=== PATIENT | female | born 1990 | race Caucasian/White ===

== ENCOUNTER → 2018-06-16 15:39 | Outpatient (CLI) | payer MEDICAID, SELFPAY ==
[2018-06-16 16:10] LABS: Basophils % 0.2 % (0.1-2.0); Eosinophils % 0.3 % (0.1-12.0); Hemoglobin 12.6 g/dL (12.2-16.2); Lymphocytes # 1.8 K/mm3 (0.7-4.5); Lymphocytes % 20.9 % (10-50); Mean Corpuscular HGB Conc 35.1 g/dL (31.8-35.4); Mean Corpuscular Hemoglobin 31.2 pg (27.0-31.2); Mean Corpuscular Volume 88.9 fl (81-99); Mean Platelet Volume 8.6 fl (7.4-10.4); Monocytes # 0.5 K/mm3 (0.1-1.0); Monocytes % 5.7 % (1.7-9.3); Neutrophils # 6.3 K/mm3 (1.8-7.8); Platelet Count 190 K/mm3 (142-424); Red Blood Count 4.05 M/mm3 (4.20-5.40); Red Cell Distribution Width 13.1 % (11.5-17.5); White Blood Count 8.6 K/mm3 (4.8-10.8)
[2018-06-16 18:55] LABS: Amphetamine/Metha Screen,Urine Negative ng/mL (<1000); Barbiturates Screen,Urine Negative ng/mL (<200); Benzodiazepines Screen,Urine Negative ng/mL (<200); Cannabinoid Screen,Urine Negative ng/mL (<50); Cocaine Screen,Urine Negative ng/mL (<300); Methadone Screen,Urine Negative ng/mL (<300); Opiate Screen,Urine Negative ng/mL (<300); Phencyclidine Screen,Urine Negative ng/mL (<25)
[2018-06-18 07:39] LABS: HIV Screen 4th Generation wRfx Non Reactive (Non Reactive)
[2018-06-18 09:09] LABS: Rapid Plasma Reagin Ab Titer Non Reactive (NonRea<1:1)
[2018-06-18 09:10] LABS: Hepatitis B Surface Antigen Negative (Negative); Hepatitis C Antibody >11.0 s/co ratio (0.0-0.9)
== END ==
PROVIDERS: Visit Provider Obstetrics & Gynecology
DX: Z34.90 Encounter for supervision of normal pregnancy, unspecified, unspecified trimester (principal)
CPT/HCPCS: 36415; 80305; 84443; 85025; 86592; 86703; 86762; 86850; 87340; 87380; G0432

== ENCOUNTER 2018-07-12 02:53 | Outpatient (CLI) | payer MEDICAID, SELFPAY ==
[2018-07-12 03:03] VITALS: BMI 22.6
[2018-07-12 03:11] LABS: Appearance,Urine CLEAR (Clear); Bilirubin,Urine Negative (Negative); Blood, Urine Negative (Negative); Color,Urine YELLOW (Yellow); Glucose,Urine (UA) Negative (Negative); Ketones,Urine Negative (Negative); Leukocyte Esterase,Urine Negative (Negative); Microscopic, Urine URINE MICROSCOPIC (MICROSCOPIC); Nitrate,Urine Negative (Negative); PH,Urine 7.5 (5.0-8.5); Protein,Urine Negative (Negative); Specific Gravity, Urine 1.015 (1.005-1.030); Urobilinogen,Urine 0.2 EU/dl (0.2)
[2018-07-12 03:14] LABS: Amorphous Sediment,Urine Trace /lpf
[2018-07-12 03:18] LABS: Amphetamine/Metha Screen,Urine Negative ng/mL (<1000); Barbiturates Screen,Urine Negative ng/mL (<200); Benzodiazepines Screen,Urine Negative ng/mL (<200); Cannabinoid Screen,Urine Negative ng/mL (<50); Cocaine Screen,Urine Negative ng/mL (<300); Methadone Screen,Urine Negative ng/mL (<300); Opiate Screen,Urine Negative ng/mL (<300); Phencyclidine Screen,Urine Negative ng/mL (<25)
[2018-07-12 03:24] VITALS: BP 106/70; PULSE 90; RESP 18; TEMP 36.9; BMI 22.6
[2018-07-12 03:30] VITALS: BP 106/70; PULSE 90; RESP 18; TEMP 36.9
[2018-07-12 03:53] LABS: Fetal Fibronectin (Rapid) Negative (Negative)
== END 2018-07-12 04:55 | disposition home or self-care (01) ==
LOC: OBOUT 02:55 → OB 02:56
PROVIDERS: PCP Family Medicine; Visit Provider Obstetrics & Gynecology
DX: O26.892 Other specified pregnancy related conditions, second trimester (principal); Z3A.25 25 weeks gestation of pregnancy; R10.84 Generalized abdominal pain; M54.5 Low back pain
CPT/HCPCS: 59025; 80305; 81001; 82731; 96372

== ENCOUNTER → 2018-08-03 10:23 | Outpatient (CLI) | payer MEDICAID, SELFPAY ==
[2018-08-03 14:04] LABS: Glucose 1 Hour 200 mg/dL (74-106)
== END ==
PROVIDERS: Visit Provider Obstetrics & Gynecology
DX: Z34.90 Encounter for supervision of normal pregnancy, unspecified, unspecified trimester (principal)
CPT/HCPCS: 36415; 82951

== ENCOUNTER → 2018-08-14 10:45 | Outpatient (CLI) | payer MEDICAID, SELFPAY ==
[2018-08-14 11:22] LABS: Glucose,Fasting 83 mg/dL (60-105)
[2018-08-14 14:22] LABS: Glucose 1 Hour 215 mg/dL (74-106); Glucose 2 Hour 224 mg/dL (74-106)
[2018-08-14 14:48] LABS: Glucose 3 Hour 161 mg/dL (74-106)
== END ==
PROVIDERS: Visit Provider Obstetrics & Gynecology
DX: O99.810 Abnormal glucose complicating pregnancy (principal); Z34.90 Encounter for supervision of normal pregnancy, unspecified, unspecified trimester
CPT/HCPCS: 36415; 82951

== ENCOUNTER → 2018-09-14 14:10 | Outpatient (CLI) | payer MEDICAID, SELFPAY | PROVIDERS: Visit Provider Obstetrics & Gynecology | DX: Z34.90 Encounter for supervision of normal pregnancy, unspecified, unspecified trimester (principal) | CPT/HCPCS: 86403 ==

== ENCOUNTER 2018-09-28 13:50 | Outpatient (CLI) | payer MEDICAID, SELFPAY ==
[2018-09-28 14:08] VITALS: BP 111/77; PULSE 81; RESP 18; TEMP 36.4; O2SAT 100; BMI 24.7
== END 2018-09-28 16:18 | disposition home or self-care (01) ==
LOC: OBOUT 13:55 → OB 13:56
PROVIDERS: PCP Family Medicine; Visit Provider Obstetrics & Gynecology
DX: O26.893 Other specified pregnancy related conditions, third trimester (principal); Z3A.36 36 weeks gestation of pregnancy
CPT/HCPCS: 59025; 96360; 96372

== ENCOUNTER 2018-10-04 17:54 | Inpatient (IN) ==
[2018-10-04 18:26] LABS: Microscopic, Urine URINE MICROSCOPIC (MICROSCOPIC)
[2018-10-04 18:28] LABS: Appearance,Urine CLEAR (Clear); Bilirubin,Urine Negative (Negative); Blood, Urine TRACE-I (Negative); Color,Urine YELLOW (Yellow); Glucose,Urine (UA) Negative (Negative); Ketones,Urine Negative (Negative); Leukocyte Esterase,Urine Negative (Negative); PH,Urine 6.5 (5.0-8.5); Protein,Urine Negative (Negative); Specific Gravity, Urine <= 1.005 (1.005-1.030); Urobilinogen,Urine 0.2 EU/dl (0.2)
[2018-10-04 18:33] LABS: RBC,Urine Occasional #/hpf (0-3); Squamous Epithelial Cell,Urine Occasional #/hpf (0-5); WBC,Urine Occasional #/hpf (0-3)
[2018-10-04 18:36] LABS: Amphetamine/Metha Screen,Urine Negative ng/mL (<1000); Barbiturates Screen,Urine Negative ng/mL (<200); Benzodiazepines Screen,Urine Negative ng/mL (<200); Cannabinoid Screen,Urine Negative ng/mL (<50); Cocaine Screen,Urine Negative ng/mL (<300); Methadone Screen,Urine Negative ng/mL (<300); Opiate Screen,Urine Negative ng/mL (<300); Phencyclidine Screen,Urine Negative ng/mL (<25)
[2018-10-04 20:21] LABS: Basophils % 0.3 % (0.1-2.0); Eosinophils % 0.2 % (0.1-12.0); Lymphocytes # 1.8 K/mm3 (0.7-4.5); Mean Corpuscular HGB Conc 33.5 g/dL (31.8-35.4); Mean Corpuscular Volume 87.6 fl (81-99); Mean Platelet Volume 10.4 fl (7.4-10.4); Monocytes # 0.6 K/mm3 (0.1-1.0); Monocytes % 6.7 % (1.7-9.3); Neutrophils # 6.9 K/mm3 (1.8-7.8); Neutrophils % 73.9 % (37.0-80.0); Platelet Count 155 K/mm3 (142-424); Red Blood Count 3.77 M/mm3 (4.20-5.40); Red Cell Distribution Width 12.8 % (11.5-17.5); White Blood Count 9.3 K/mm3 (4.8-10.8)
--- NOTE | 2018-10-05 06:32 | Progress Note ---
Internal Medicine - PN: Subj *Date: 10/05/18 *Time: 06:31 Interval history: This 28-year-old 5, para 4, Ab0 white female was admitted at 37-4/7 weeks in labor with her cervix 1 to 2 cm dilated. The baby is look good on the monitor (external), and this morning her cervix is 80%, 3 cm, with the presenting vertex at -2 station. Bag of water intact. She is planning for tubal ligation. The plan is for vaginal delivery. Exam Vital signs and Labs for Last 24 Hours: Temp Resp Pulse Ox 98.0 F 20 100 10/04/18 18:01 10/04/18 18:01 10/04/18 18:01 Laboratory Results - last 24 hr 10/04/18 18:15: Urine Color Yellow, Urine Appearance Clear, Urine pH 6.5, Ur Specific [place] <= 1.005, Urine Protein Negative, Urine Glucose (UA) Negative, Urine Ketones Negative, Urine Blood Trace-i, Urine Nitrate Negative, Urine Bilirubin Negative, Urine Urobilinogen 0.2, Ur Leukocyte Esterase Negative, Urine RBC Occasional, Urine WBC Occasional, Ur Squamous Epith Cells Occasional 10/04/18 18:15: Urine Opiates Screen Negative, Urine Methadone Screen Negative, Ur Barbituates Screen Negative, Ur Phencyclidine Scrn Negative, Ur Amphetamines Screen Negative, U Benzodiazepines Scrn Negative, Urine Cocaine Screen Negative, U Marijuana (THC) Screen Negative 10/04/18 18:15: Membrane Rupture Negative 10/04/18 20:13: WBC 9.3, RBC 3.77 L, Hgb 11.0 L, Hct 33.0 L, MCV 87.6, MCH 29.3, MCHC 33.5, RDW 12.8, Plt Count 155, MPV 10.4, Neut % (Auto) 73.9, Lymph % (Auto) 19.0, [place] % (Auto) 6.7, Eos % (Auto) 0.2, Baso % (Auto) 0.3, Neut # (Auto) 6.9, Lymph # (Auto) 1.8, [place] # (Auto) 0.6, Eos # (Auto) 0.0, Baso # (Auto) 0.0 10/04/18 20:13: Blood Type A Positive, Antibody Screen Negative I & O for Last 24 hours: Intake & Output 10/02/18 10/03/18 10/04/18 10/05/18 11:59 11:59 11:59 11:59 Weight 134 lb
--- NOTE | 2018-10-05 11:09 | Progress Note ---
Internal Medicine - PN: Subj *Date: 10/05/18 *Time: 11:08 Interval history: Cervix is now 90%, 3 to 4 cm dilated, with the presenting vertex at -2 station. Amniotomy reveals clear fluid and an internal monitor has been placed. Intravenous Pitocin is now being used for augmentation. Vaginal delivery anticipated. Patient is planning a tubal ligation. Exam Vital signs and Labs for Last 24 Hours: Temp Pulse Resp BP Pulse Ox 98.0 F 73 20 118/77 98 10/05/18 08:00 10/05/18 08:00 10/05/18 08:00 10/05/18 08:00 10/05/18 08:00 Laboratory Results - last 24 hr 10/04/18 18:15: Urine Color Yellow, Urine Appearance Clear, Urine pH 6.5, Ur Specific [place] <= 1.005, Urine Protein Negative, Urine Glucose (UA) Negative, Urine Ketones Negative, Urine Blood Trace-i, Urine Nitrate Negative, Urine Bilirubin Negative, Urine Urobilinogen 0.2, Ur Leukocyte Esterase Negative, Urine RBC Occasional, Urine WBC Occasional, Ur Squamous Epith Cells Occasional 10/04/18 18:15: Urine Opiates Screen Negative, Urine Methadone Screen Negative, Ur Barbituates Screen Negative, Ur Phencyclidine Scrn Negative, Ur Amphetamines Screen Negative, U Benzodiazepines Scrn Negative, Urine Cocaine Screen Negative, U Marijuana (THC) Screen Negative 10/04/18 18:15: Membrane Rupture Negative 10/04/18 20:13: WBC 9.3, RBC 3.77 L, Hgb 11.0 L, Hct 33.0 L, MCV 87.6, MCH 29.3, MCHC 33.5, RDW 12.8, Plt Count 155, MPV 10.4, Neut % (Auto) 73.9, Lymph % (Auto) 19.0, [place] % (Auto) 6.7, Eos % (Auto) 0.2, Baso % (Auto) 0.3, Neut # (Auto) 6.9, Lymph # (Auto) 1.8, [place] # (Auto) 0.6, Eos # (Auto) 0.0, Baso # (Auto) 0.0 10/04/18 20:13: Blood Type A Positive, Antibody Screen Negative I & O for Last 24 hours: Intake & Output 10/02/18 10/03/18 10/04/18 10/05/18 11:59 11:59 11:59 11:59 Weight 134 lb
--- NOTE | 2018-10-05 12:55 | Progress Note ---
Internal Medicine - PN: Subj *Date: 10/05/18 *Time: 12:53 Interval history: Doing well. Cervix now completely effaced, 6 cm, with the presenting vertex at -2 station. Refuses epidural at this time. Exam Vital signs and Labs for Last 24 Hours: Temp Pulse Resp BP Pulse Ox 98.5 F 89 20 121/86 98 10/05/18 12:00 10/05/18 12:00 10/05/18 12:00 10/05/18 12:00 10/05/18 12:00 Laboratory Results - last 24 hr 10/04/18 18:15: Urine Color Yellow, Urine Appearance Clear, Urine pH 6.5, Ur Specific [place] <= 1.005, Urine Protein Negative, Urine Glucose (UA) Negative, Urine Ketones Negative, Urine Blood Trace-i, Urine Nitrate Negative, Urine Bilirubin Negative, Urine Urobilinogen 0.2, Ur Leukocyte Esterase Negative, Urine RBC Occasional, Urine WBC Occasional, Ur Squamous Epith Cells Occasional 10/04/18 18:15: Urine Opiates Screen Negative, Urine Methadone Screen Negative, Ur Barbituates Screen Negative, Ur Phencyclidine Scrn Negative, Ur Amphetamines Screen Negative, U Benzodiazepines Scrn Negative, Urine Cocaine Screen Negative, U Marijuana (THC) Screen Negative 10/04/18 18:15: Membrane Rupture Negative 10/04/18 20:13: WBC 9.3, RBC 3.77 L, Hgb 11.0 L, Hct 33.0 L, MCV 87.6, MCH 29.3, MCHC 33.5, RDW 12.8, Plt Count 155, MPV 10.4, Neut % (Auto) 73.9, Lymph % (Auto) 19.0, [place] % (Auto) 6.7, Eos % (Auto) 0.2, Baso % (Auto) 0.3, Neut # (Auto) 6.9, Lymph # (Auto) 1.8, [place] # (Auto) 0.6, Eos # (Auto) 0.0, Baso # (Auto) 0.0 10/04/18 20:13: Blood Type A Positive, Antibody Screen Negative I & O for Last 24 hours: Intake & Output 10/03/18 10/04/18 10/05/18 10/06/18 11:59 11:59 11:59 11:59 Weight 134 lb
--- NOTE | 2018-10-05 14:20 | Progress Note ---
Internal Medicine - PN: Subj *Date: 10/05/18 *Time: 14:19 Interval history: Cervix now completely effaced, anterior lip, 0 station. Exam Vital signs and Labs for Last 24 Hours: Temp Pulse Resp BP Pulse Ox 98.5 F 89 20 121/86 98 10/05/18 12:00 10/05/18 12:00 10/05/18 12:00 10/05/18 12:00 10/05/18 12:00 Laboratory Results - last 24 hr 10/04/18 18:15: Urine Color Yellow, Urine Appearance Clear, Urine pH 6.5, Ur Specific [place] <= 1.005, Urine Protein Negative, Urine Glucose (UA) Negative, Urine Ketones Negative, Urine Blood Trace-i, Urine Nitrate Negative, Urine Bilirubin Negative, Urine Urobilinogen 0.2, Ur Leukocyte Esterase Negative, Urine RBC Occasional, Urine WBC Occasional, Ur Squamous Epith Cells Occasional 10/04/18 18:15: Urine Opiates Screen Negative, Urine Methadone Screen Negative, Ur Barbituates Screen Negative, Ur Phencyclidine Scrn Negative, Ur Amphetamines Screen Negative, U Benzodiazepines Scrn Negative, Urine Cocaine Screen Negative, U Marijuana (THC) Screen Negative 10/04/18 18:15: Membrane Rupture Negative 10/04/18 20:13: WBC 9.3, RBC 3.77 L, Hgb 11.0 L, Hct 33.0 L, MCV 87.6, MCH 29.3, MCHC 33.5, RDW 12.8, Plt Count 155, MPV 10.4, Neut % (Auto) 73.9, Lymph % (Auto) 19.0, [place] % (Auto) 6.7, Eos % (Auto) 0.2, Baso % (Auto) 0.3, Neut # (Auto) 6.9, Lymph # (Auto) 1.8, [place] # (Auto) 0.6, Eos # (Auto) 0.0, Baso # (Auto) 0.0 10/04/18 20:13: Blood Type A Positive, Antibody Screen Negative I & O for Last 24 hours: Intake & Output 10/03/18 10/04/18 10/05/18 10/06/18 11:59 11:59 11:59 11:59 Weight 134 lb
--- NOTE | 2018-10-05 14:54 | Procedure Note ---
- Delivery Note Delivery Date:: 10/05/18 Delivery Time:: 14:37 Anesthesia Type: None Was labor medically induced?: Yes Induction method: per pitocin protocol Gestational age (weeks): 37 delivered prior to 39 weeks?: Yes Justification for early elective delivery:: Active Labor Gender: Male at 1 minute: 7 at 5 minutes: 8 Suction Catheter Type: Lluvia AF:: clear Delivery Procedure:: This 28-year-old 5, now para 5, Ab0 white female was admitted at 37-4/7 weeks in active labor at approximately 2000 hrs. on 10/04/2018. She was observed overnight and augmented this morning because of slow dilatation. On admission she was 1 cm, this morning she was 3 cm dilated. She then went steadily to completion, without an epidural, and delivered spontaneously, with no episiotomy, at 1437. There was no meconium, nor was there a nuchal cord. The baby's nasal and oropharynx were bulb suction, and the baby cried spontaneously on the perineum, as was delivered. The cord was clamped and cut, 3 vessels were noted to be within the cord, and cord blood was obtained. The cord pH is pending. The baby was handed into the arms of the attending RN, who assigned Apgars of 7 at 1 minute and 8 at 5 minutes to this male infant (weight in length pending), born at 1437. The placenta delivered spontaneously, intact, at 1439, making the total time in labor 18 hours 39 minutes. The uterus was inspected and was felt to be clean, and was involuting well, with IV Pitocin running. There were no lacerations. The rectovaginal septum was intact at the close of the procedure. The sponge needle count was correct. The estimated blood loss was 350 cc. The patient tolerated the procedure well, and was recovered in excellent condition. Her blood type is A+. Her rubella titer is immune. She plans to bottlefeed. It should be noted that she is group B strep positive, and received antibiotics during her labor. She is also hepatitis C positive and appropriate precautions have been taken. She plans for a tubal ligation either later today or tomorrow morning. Placental Delivery Description: Spontaneous
--- NOTE | 2018-10-06 06:16 | Progress Note ---
Internal Medicine - PN: Subj *Date: 10/06/18 *Time: 06:15 Interval history: This is day #1. The patient is afebrile. Vital signs stable. Abdomen soft. Lochia normal. Uterine fundus involuting well. Hemoglobin 11.0 g. Patient is scheduled for tubal ligation this morning. The baby is doing well. Exam Vital signs and Labs for Last 24 Hours: Temp Pulse Resp BP Pulse Ox 98.0 F 72 18 116/55 L 100 10/05/18 16:00 10/05/18 16:00 10/05/18 16:00 10/05/18 16:00 10/05/18 16:00 Laboratory Results - last 24 hr 10/05/18 15:01: Cord ABG pH 7.25 L I & O for Last 24 hours: Intake & Output 10/03/18 10/04/18 10/05/18 10/06/18 11:59 11:59 11:59 11:59 Weight 134 lb
--- NOTE | 2018-10-06 07:00 | Operative Note ---
Date of procedure: 10/06/18 (Normal spontaneous vaginal delivery on 10/05/2018) Pre-op Diagnosis:: Desire for sterilization Post-op Diagnosis:: Desire for sterilization Procedure performed:: bilateral tubal ligation Surgeon:: Carlos Hutton MD DOPSTER:: Iraj Bush Anesthesia: GETA Estimated blood loss (mL): 10 Operative findings:: Normal fallopian tubes Operative note:: After the patient was prepped and draped in usual fashion and general anesthesia was administered, a subumbilical semielliptical incision was made with a knife, and taken down to the peritoneum, which was entered with Metzenbaum scissors and extended bilaterally. The involuting uterus was encountered. Using a finger sweep, first the left tube, and then the right was brought up into view and followed out to its fimbriated end for identification. The midportion of each tube was tented up with a [place] clamp, and the base of the tented up portion of the tube was crushed with a Mary clamp, and ligated with 2-0 Vicryl. The intervening segment of each tube was excised with Metzenbaum scissors, and the stumps coagulated with the Bovie. There was minimal bleeding. The tubes were allowed to drop back into place. The peritoneum was closed with a running unlocked suture of 2-0 Vicryl. The subcutaneous fat and fascia were closed with a running unlocked suture of 2-0 Vicryl. The skin was closed with a subcuticular suture of 3-0 Vicryl, and appropriately dressed. The sponge and needle counts correct. The estimated blood loss was less than 10 cc. The patient tolerated the procedure well, and was taken to PACU in excellent condition, whence she will return to the floor. Condition: stable Disposition: PACU Specimens:: Bilateral tubal segments Complications:: None
--- NOTE | 2018-10-06 07:06 | Progress Note ---
[facility] Anesthesia Record Part I Intake, IV Amount: 200 Estimated blood loss (mL): 5 Urine output (mL): 0 Blood Pressure: 132/81 SaO2: 95 Pulse Rate: 70 Respiratory Rate: 16 Temperature: 97.5 F Patient is:: Drowsy, Stable Stable to PACU at:: 07:00
--- NOTE | 2018-10-06 07:06 | Progress Note ---
[facility] Anesthesia Checklist - Patient Identification Patient Identification: Arm Band - Structural Data Admitted From: Inpatient Planned Operative Procedure/s: post bilateral tubal ligation Consent for Planned Operative Procedure(s) Verified: Yes Verified Documents: Surgical Consent, History and Physical - NPO Status Verified Time NPO: 00:00 - Additional verifications Anesthesia Reactions: No - Airway Assessment C-Spine Mobility Assessed: Yes (mp2) TMJ Mobility Assessed: Yes Dentition: Good Dentition - Neurological Assessment Level of Consciousness: Awake, Alert - Anesthesia Plan Anesthesia Risk discussed: Yes Anesthesia Plan: Verified ASA Class: II Anesthesia Type: General (pt refuses sab- increased risks of GA in post pt discussed- pt verbalizes understanding) [facility] History Medical History: Reports:: Hepatitis (c) Denies:: Cancer, Diabetes Mellitus Type 1, Diabetes Mellitus Type 2, MRSA *Have you ever received a pneumonia vaccine?: No *Have you received a flu vaccine this season?: No Other Medical History: Denies: Hormone Therapy Other Surgeries: Yes: Cholecystectomy. No: Amputation: No Fractures: No - *Social History Smoking Status: Former smoker Tobacco Type: cigarettes Alcohol Intake: former Alcohol Intake Frequency:: other Substance Use Type: former substance user, heroin *Occupational Status:: unemployed *Travel in the last 8 weeks: None Family Hx:: Coronary Artery Disease Para: 1
--- NOTE | 2018-10-06 07:07 | Progress Note ---
[facility] Anesthesia Record Part II Discharge Time: 07:30 Destination: Obstetric PACU nurse assessment reviewed?: Yes Patient Condition:: Good Anesthesia Complications:: None Swallowing reflex intact?: Yes Cyanosis?: No
[2018-10-06 07:33] LABS: Hematocrit 33.9 % (37.0-47.0)
[2018-10-06 10:35] LABS: Hematocrit 28.8 % (37.0-47.0)
[2018-10-06 10:36] LABS: Hemoglobin 9.2 g/dL (12.2-16.2)
--- NOTE | 2018-10-06 11:31 | Progress Note ---
Internal Medicine - PN: Subj *Date: 10/06/18 *Time: 11:25 Interval history: I was called urgently to see the patient at 1000. She had undergone a normal spontaneous vaginal delivery yesterday afternoon and a tubal ligation early this morning without apparent complications. When she had return to the floor she was doing well and got up to void without any difficulty. Shortly thereafter she needed to get up again to void and became diaphoretic and almost unresponsive. She was helped back to bed and I was called to attend to her. At that point her blood pressure was 69/35. Her pulse rate was 113. She was barely responsive and pale. Her lochia was normal. Her abdomen appeared soft. The subumbilical wound was clean. She was not complaining of abdominal pain. Her calves were nontender. An H&H had been drawn, and anesthesia was called. Iraj Bush CRNA, arrived expeditiously; he had been the pharmacy affairs assistant at her tubal ligation earlier this morning. The patient's pulse ox was steady at 100. A stat EKG was unremarkable. A tox screen was obtained (her partner insists that she had taken nothing that was not prescribed in the hospital) and the hemoglobin was returned at 9.2 g (yesterday was 11.0 g both pre-and post delivery). A stat ultrasound revealed a large amount of fluid in the abdomen. Her blood pressure was relatively stable in the 70s over 40s. Narcan was administered empirically. It was felt that exploratory laparotomy was necessary because of hemoperitoneum from postop hemorrhage. The patient and her partner were quickly consented, and the patient was typed and crossed and taken expeditiously to the operating room. Please refer to the op note which follows. Exam Vital signs and Labs for Last 24 Hours: Temp Pulse Resp BP Pulse Ox 97.8 F 67 18 122/84 98 10/06/18 07:54 10/06/18 07:54 10/06/18 07:54 10/06/18 07:54 10/06/18 07:54 Laboratory Results - last 24 hr 10/04/18 20:13: Crossmatch (AHG) See Detail 10/05/18 15:01: Cord ABG pH 7.25 L 10/06/18 06:10: Hgb 11.0 L, Hct 33.9 L 10/06/18 10:22: Hgb 9.2 L D, Hct 28.8 L I & O for Last 24 hours: Intake & Output 10/03/18 10/04/18 10/05/18 10/06/18 11:59 11:59 11:59 11:59 Intake Total 300 / 300 Output Total 0 / 0 Balance 300 / 300 Weight 134 lb
--- NOTE | 2018-10-06 11:38 | Operative Note ---
Date of procedure: 10/06/18 (Postop hemorrhage) Pre-op Diagnosis:: 1. Postop hemorrhage, with acute blood loss. Post-op Diagnosis:: 1. Postop hemorrhage, with acute blood loss. 2. Massive hemoperitoneum. 3. Bleeding from the right fallopian tube. Procedure performed:: 1. Exploratory laparotomy. 2. Evacuation of massive hemoperitoneum. 3. Right salpingectomy. Surgeon:: Carlos Hutton MD Truck Sales Manager(s):: GAEL Deshpaned HAIR BLENDER:: Iraj Bush Anesthesia: REYNALDO Estimated blood loss (mL): 1,000 Operative findings:: 1. Massive hemoperitoneum. 2. Small bleeding point from the right fallopian tube. Operative note:: After the patient was prepped and draped in usual fashion and general anesthesia was administered, a lower abdominal midline incision was made and quickly taken down through fat and fascia to the peritoneum, which was entered with Metzenbaum scissors and extended above and below. A large amount of blood and clot was found within the abdominal cavity. These were evacuated and the gutters were extensively suctioned. The pelvis was addressed. The involuting uterus was normal, with no evidence of puncture or bleeding. Each ovary appeared normal. The left tube showed evidence of recent ligation and there was no evidence of bleeding from that tube. The stumps were again fulgurated as a precaution. On the right side, the same appeared to be so, except that there was a small amount of oozing from the ligation site and the mesosalpinx was thin, although no actual bleeding was seen from that site. The right tube was grasped with a [place] clamp, and a Mary clamp was used to cross-clamp the mesial salpinx and the uterine cornu. The right tube was excised with Metzenbaum scissors, including the ligation site. The pedicles were free tied and then oversewn with 3-0 Vicryl, and then the mesoappendix was also secondarily closed with an unlocked suture of 3-0 Vicryl. Extensive irrigation was carried out and there was no evidence of other bleeding. The appendix was identified and appeared normal. The peritoneum was then grasped with 3 Mary clamps, and closed with a running semi-lock suture of 0 Vicryl. The muscle was approximated with a running unlocked suture of 0 Vicryl. The fascia was closed with a running unlocked suture of 0 Vicryl. The subcutaneous fat and Sarah's fascia were closed with a running unlocked suture of 2-0 Vicryl. The skin was closed with a subcuticular suture of 3-0 Vicryl, and appropriately dressed. The sponge needle count was correct. Because of the urgency of the surgery, a preop count had not been done, and so a postop x-ray was done to assure that the counts were correct, and this showed no evidence of foreign bodies. The estimated blood loss was 1000 cc. The patient tolerated the procedure well, and was taken to PACU in stable condition. An H&H will be obtained there, and the patient will receive at least 1 unit of packed cells. Condition: stable Disposition: PACU Specimens:: Right fallopian tube Complications:: None
--- NOTE | 2018-10-06 11:46 | Progress Note ---
[facility] Anesthesia Record Part I Intake, IV Amount: 1,000 Estimated blood loss (mL): 1,000 Urine output (mL): 0 Blood Pressure: 143/73 SaO2: 99 Pulse Rate: 90 Respiratory Rate: 16 Temperature: 97.3 F Patient is:: Drowsy, Stable Stable to PACU at:: 11:40
--- NOTE | 2018-10-06 11:46 | Progress Note ---
[facility] Anesthesia Record Part II Discharge Time: 12:10 Destination: Obstetric PACU nurse assessment reviewed?: Yes Patient Condition:: Good Anesthesia Complications:: None Swallowing reflex intact?: Yes Cyanosis?: No
[2018-10-06 12:03] LABS: Hematocrit 27.9 % (37.0-47.0)
[2018-10-06 13:05] LABS: Microscopic, Urine URINE MICROSCOPIC (MICROSCOPIC)
[2018-10-06 13:07] LABS: Appearance,Urine CLEAR (Clear); Bilirubin,Urine Negative (Negative); Blood, Urine TRACE-I (Negative); Color,Urine YELLOW (Yellow); Glucose,Urine (UA) Negative (Negative); Ketones,Urine Negative (Negative); Leukocyte Esterase,Urine Negative (Negative); PH,Urine 6.5 (5.0-8.5); Protein,Urine Negative (Negative); Urobilinogen,Urine 0.2 EU/dl (0.2)
[2018-10-06 13:14] LABS: Amphetamine/Metha Screen,Urine Negative ng/mL (<1000); Barbiturates Screen,Urine Negative ng/mL (<200); Benzodiazepines Screen,Urine Positive ng/mL (<200); Cannabinoid Screen,Urine Negative ng/mL (<50); Cocaine Screen,Urine Negative ng/mL (<300); Methadone Screen,Urine Negative ng/mL (<300); Opiate Screen,Urine Negative ng/mL (<300); Phencyclidine Screen,Urine Negative ng/mL (<25)
[2018-10-06 14:14] LABS: Bacteria,Urine Trace /lpf
--- NOTE | 2018-10-06 15:24 | Pharmacy Consult Notes ---
[facility] Pharmacy VTE Monitoring - Patient Demographics Admission date: 10/05/18 Report Date: 10/06/18 Time: 15:23 Allergies/Adverse Reactions: Patient Allergies Penicillins Allergy (Mild, Verified 10/01/18 14:37) Height: 1.52 m Weight: 60.781 kg - VTE Risk Labs: VTE Related Lab Results Hgb 9.0 g/dL (12.2-16.2) L 10/06/18 11:55 Hct 27.9 % (37.0-47.0) L 10/06/18 11:55 Plt Count 155 K/mm3 (142-424) 10/04/18 20:13 - Prophylaxis VTE Prophylaxis Ordered?: Yes Types of VTE Prophylaxis: IPCS Thigh High Location of Applied Device: Bilateral Lower Extremeties
--- NOTE | 2018-10-06 15:45 | Electrocardiograph Report ---
APPROVED REPORT Exam: Resting ECG HR:65 bpm ECG Measurements Heart Rate 65 AXES VA 100 P 56 QRSd 74 QRS 71 QT 426 T38 QTc 443 <Conclusion> Sinus rhythm with short VA Otherwise normal ECG Electronically signed by : Jani Johnson, 10/06/2018 15:38:18
[2018-10-06 16:24] LABS: Hematocrit 26.8 % (37.0-47.0); Hemoglobin 8.7 g/dL (12.2-16.2)
--- NOTE | 2018-10-06 16:32 | Progress Note ---
Internal Medicine - PN: Subj *Date: 10/06/18 *Time: 16:30 Interval history: The patient remained stable at this point in time. Her vital signs are normal (blood pressure 103/68). Hemoglobin after 1 unit of packed cells is 8.7 g. She is comfortable and her abdomen is soft. Lochia is normal. Uterine fundus has involuted well. Urine output is good and her Louis catheter. Surgery has been explained to the patient, including the events leading up to it. Impression: Stable. I will repeat her hemoglobin in the morning. Exam Vital signs and Labs for Last 24 Hours: Temp Pulse Resp BP Pulse Ox 97.7 F 78 18 108/67 L 99 10/06/18 12:10 10/06/18 12:10 10/06/18 12:10 10/06/18 12:10 10/06/18 12:10 Laboratory Results - last 24 hr 10/04/18 20:13: Blood Type A Positive, Antibody Screen Negative, Crossmatch (AHG) See Detail 10/06/18 06:10: Hgb 11.0 L, Hct 33.9 L 10/06/18 10:22: Hgb 9.2 L D, Hct 28.8 L 10/06/18 11:55: Hgb 9.0 L, Hct 27.9 L 10/06/18 12:25: Urine Color Yellow, Urine Appearance Clear, Urine pH 6.5, Ur Specific [place] 1.010, Urine Protein Negative, Urine Glucose (UA) Negative, Urine Ketones Negative, Urine Blood Trace-i, Urine Nitrate Negative, Urine Bilirubin Negative, Urine Urobilinogen 0.2, Ur Leukocyte Esterase Negative, Urine RBC 5-10, Urine WBC 3-5, Ur Squamous Epith Cells None, Ur Transition Epith Cell 10-20, Urine Bacteria Trace 10/06/18 12:25: Urine Opiates Screen Negative, Urine Methadone Screen Negative, Ur Barbituates Screen Negative, Ur Phencyclidine Scrn Negative, Ur Amphetamines Screen Negative, U Benzodiazepines Scrn Positive H, Urine Cocaine Screen Negative, U Marijuana (THC) Screen Negative 10/06/18 16:00: Hgb 8.7 L, Hct 26.8 L I & O for Last 24 hours: Intake & Output 10/04/18 10/05/18 10/06/18 10/07/18 11:59 11:59 11:59 11:59 Intake Total 1300 / 1300 100 / 100 Output Total 0 / 0 10 / 10 Balance 1300 / 1300 90 / 90 Weight 134 lb
[2018-10-07 07:22] LABS: Hematocrit 24.6 % (37.0-47.0)
--- NOTE | 2018-10-07 07:26 | Progress Note ---
Internal Medicine - PN: Subj *Date: 10/07/18 *Time: 07:24 Interval history: This is day #2 and postop day #1. The patient is afebrile. Her vital signs are stable. Her blood pressure is 100/60. Wound is clean. Uterine fundus involuting well. Lochia normal. Her abdomen is somewhat distended, and I am going to cut her diet back to liquids and give her a Dulcolax suppository. Her her hemoglobin last evening was 8.7 g; this morning's hemoglobin is pending. She may require further transfusion. Impression: Improving. Exam Vital signs and Labs for Last 24 Hours: Temp Pulse Resp BP Pulse Ox 97.7 F 78 18 108/67 L 99 10/06/18 12:10 10/06/18 12:10 10/06/18 12:10 10/06/18 12:10 10/06/18 12:10 Laboratory Results - last 24 hr 10/04/18 20:13: Blood Type A Positive, Antibody Screen Negative, Crossmatch (AHG) See Detail 10/06/18 06:10: Hgb 11.0 L, Hct 33.9 L 10/06/18 10:22: Hgb 9.2 L D, Hct 28.8 L 10/06/18 11:55: Hgb 9.0 L, Hct 27.9 L 10/06/18 12:25: Urine Color Yellow, Urine Appearance Clear, Urine pH 6.5, Ur Specific Foley 1.010, Urine Protein Negative, Urine Glucose (UA) Negative, Urine Ketones Negative, Urine Blood Trace-i, Urine Nitrate Negative, Urine Bilirubin Negative, Urine Urobilinogen 0.2, Ur Leukocyte Esterase Negative, Urine RBC 5-10, Urine WBC 3-5, Ur Squamous Epith Cells None, Ur Transition Epith Cell 10-20, Urine Bacteria Trace 10/06/18 12:25: Urine Opiates Screen Negative, Urine Methadone Screen Negative, Ur Barbituates Screen Negative, Ur Phencyclidine Scrn Negative, Ur Amphetamines Screen Negative, U Benzodiazepines Scrn Positive H, Urine Cocaine Screen Negative, U Marijuana (THC) Screen Negative 10/06/18 16:00: Hgb 8.7 L, Hct 26.8 L I & O for Last 24 hours: Intake & Output 10/04/18 10/05/18 10/06/1814/19 11:59 11:59 11:59 11:59 Intake Total 1300 / 1300 800 / 800 Output Total 0 / 0 810 / 810 Balance 1300 / 1300 -10 / -10 Weight 134 lb
[2018-10-07 07:33] LABS: Hemoglobin 7.9 g/dL (12.2-16.2)
[2018-10-07 10:36] LABS: Hematocrit 25.6 % (37.0-47.0); Hemoglobin 8.2 g/dL (12.2-16.2)
[2018-10-08 06:53] LABS: Hematocrit 24.3 % (37.0-47.0)
[2018-10-08 07:05] LABS: Hemoglobin 7.7 g/dL (12.2-16.2)
--- NOTE | 2018-10-08 07:34 | Progress Note ---
Internal Medicine - PN: Subj *Date: 10/08/18 *Time: 07:33 Interval history: This is day #3 and postop day #2. Patient is afebrile. Her vital signs are stable. Wound is clean. Her abdomen is soft, albeit slightly distended. Her uterine fundus is involuting well. Her lochia is normal. Her hemoglobin has dropped slightly to 7.7 g and the patient feels weak. I am going to transfuse her 2 more units of packed cells today. She is eating and ambulating and has had a bowel movement. Exam Vital signs and Labs for Last 24 Hours: Temp Pulse Resp BP Pulse Ox 97.6 F 69 16 112/67 98 10/07/18 20:30 10/07/18 20:30 10/07/18 20:30 10/07/18 20:30 10/07/18 20:30 Laboratory Results - last 24 hr 10/04/18 20:13: Blood Type A Positive, Antibody Screen Negative, Crossmatch (AHG) See Detail 10/07/18 06:06: Hgb 7.9 L*, Hct 24.6 L 10/07/18 10:25: Hgb 8.2 L, Hct 25.6 L 10/08/18 05:56: Hgb 7.7 L*, Hct 24.3 L I & O for Last 24 hours: Intake & Output 10/05/18 10/06/18 10/07/18 10/08/18 11:59 11:59 11:59 11:59 Intake Total 1300 / 1300 1047 / 1047 Output Total 0 / 0 1460 / 1460 Balance 1300 / 1300 -413 / -413 Weight 134 lb
--- NOTE | 2018-10-08 13:50 | Progress Note ---
Internal Medicine - PN: Subj *Date: 10/08/18 *Time: 13:50 Interval history: So far the patient has been transfused 1 unit today and is awaiting her second unit. She has more color and feels better. She has been up and around today and has eaten and tolerated food well. Exam Vital signs and Labs for Last 24 Hours: Temp Pulse Resp BP Pulse Ox 89.3 F L 89 18 101/60 L 98 10/08/18 13:35 10/08/18 13:35 10/08/18 13:35 10/08/18 13:35 10/08/18 13:35 Laboratory Results - last 24 hr 10/04/18 20:13: Crossmatch (AHG) See Detail 10/08/18 05:56: Hgb 7.7 L*, Hct 24.3 L 10/08/18 09:32: Blood Type A Positive, Antibody Screen Negative, Crossmatch (AHG) See Detail I & O for Last 24 hours: Intake & Output 10/06/18 10/07/18 10/08/18 10/09/18 11:59 11:59 11:59 11:59 Intake Total 1300 / 1300 1047 / 1047 250 / 250 Output Total 0 / 0 1460 / 1460 Balance 1300 / 1300 -413 / -413 250 / 250
[2018-10-08 16:29] LABS: Hematocrit 31.2 % (37.0-47.0)
[2018-10-08 16:46] LABS: Hemoglobin 10.3 g/dL (12.2-16.2)
[2018-10-08 20:36] VITALS: BP 116/62
[2018-10-09 06:42] LABS: Hematocrit 30.8 % (37.0-47.0); Hemoglobin 10.1 g/dL (12.2-16.2)
--- NOTE | 2018-10-09 07:10 | Progress Note ---
Internal Medicine - PN: Subj *Date: 10/09/18 *Time: 07:09 Interval history: This is day #4 and postop day #3. The patient is afebrile. Her vital signs are stable. Wound clean. Abdomen soft. Lochia normal. Uterine fundus has involuted well. After transfusion of a total of 3 units, her hemoglobin is stable at 10.1 g. She is eating and ambulating and has had a bowel movement. She will be discharged today. Exam Vital signs and Labs for Last 24 Hours: Temp Pulse Resp BP Pulse Ox 97.8 F 78 16 116/62 98 10/08/18 20:00 10/08/18 20:00 10/08/18 20:00 10/08/18 20:00 10/08/18 20:00 Laboratory Results - last 24 hr 10/08/18 09:32: Blood Type A Positive, Antibody Screen Negative, Crossmatch (AHG) See Detail 10/08/18 16:15: Hgb 10.3 L D, Hct 31.2 L 10/09/18 06:08: Hgb 10.1 L, Hct 30.8 L I & O for Last 24 hours: Intake & Output 10/06/18 10/07/18 10/08/18 10/09/18 11:59 11:59 11:59 11:59 Intake Total 1300 / 1300 1047 / 1047 500 / 500 Output Total 0 / 0 1460 / 1460 Balance 1300 / 1300 -413 / -413 500 / 500
--- NOTE | 2018-10-09 08:18 | Discharge Summary ---
General - General Admission date:: 10/05/18 Discharge date: 10/09/18 Hospital Course Rhogam Administration: Not Indicated Objective Vital signs: Temp Pulse Resp BP Pulse Ox 97.8 F 78 16 116/62 98 10/08/18 20:00 10/08/18 20:00 10/08/18 20:00 10/08/18 20:00 10/08/18 20:00 Results Labs on day of discharge: Labs from last 24 hours 10/09/18 10/08/18 10/08/18 06:08 16:15 09:32 Hgb 10.1 L 10.3 L D Hct 30.8 L 31.2 L Blood Type A Positive Antibody Screen Negative Crossmatch (AHG) See Detail Discharge Plan - Patient Discharge Instructions - Follow up Plan Home Medications: Home Medications Medication Instructions Recorded Confirmed Type No Known Home Medications 10/06/18 10/06/18 History Prescriptions/Medication Reconciliation: No Action No Known Home Medications - Problem Reconciliation Problems Reviewed?: Yes
--- NOTE | 2018-10-09 10:25 | Discharge Summary ---
General - General Admission date:: 10/05/18 Discharge date: 10/09/18 (This 28-year-old 5, now para 5, Ab0 white female was admitted on 10/04/2018 at 2000 hrs. in active labor at 37-4/7 weeks of gestation. There is group B strep positive and was treated with intravenous antibiotics during her labor. She was observed overnight, and continued to labor, without an epidural. She went to completion at 1400 hrs. on 10/05/2018 and delivered spontaneously, without an episiotomy, at 1439 on that date. The baby was an 7/8, 6 pound 2 ounce, 19 inch male infant, who is bottlefeeding, has been circumcised, and is done well. , the patient initially did well. She was scheduled for a tubal ligation, and underwent that procedure the following morning (10/06/2018), without apparent complications. However, later that morning the patient got out of bed and julieta me weak, dizzy and diaphoretic. She was expeditiously attended to and tests included a bedside ultrasound which indicated free fluid in the abdomen. She was treated with Narcan, and taken to the operating room, where she underwent an exploratory laparotomy with evacuation of a large hemoperitoneum and right salpingectomy. She tolerated the procedure well. She was transfused 1 unit of packed cells intraoperatively. Her hemoglobin postoperatively got as low as 7 g, and she was transfused 2 more units of blood, at which she has now stabilized with a hemoglobin of 10.1 g. This is hospital day #6, day #4, and postop day #3. She is eating and ambulating, and has had a bowel movement. Her wounds are clean. Her abdomen is soft. Her lochia is normal. Her uterine fundus has involuted well. She is discharged home on iron twice a day and vitamins once a day, and on Percocet 5/325 (#20), 1 p.o. every 6 hours as needed pain. Her blood type is A+. Her rubella titer is immune. She is given appropriate instructions as to diet, exercise, and wound care, and she is to return to the office in 1 week for follow-up.) Hospital Course Rhogam Administration: Not Indicated Objective Vital signs: Temp Pulse Resp BP Pulse Ox 97.8 F 78 16 116/62 98 10/08/18 20:00 10/08/18 20:00 10/08/18 20:00 10/08/18 20:00 10/08/18 20:00 Results Labs on day of discharge: Labs from last 24 hours 10/09/18 10/08/18 10/08/18 06:08 16:15 09:32 Hgb 10.1 L 10.3 L D Hct 30.8 L 31.2 L Blood Type A Positive Antibody Screen Negative Crossmatch (AHG) See Detail Discharge Plan - Patient Discharge Instructions ACTIVITY: Limited activity DIET: advance to your usual diet - Follow up Plan Disposition: Home, Self-Halfway Medications: Home Medications Medication Instructions Recorded Confirmed Type Oxycodone HCl [OxyIR 5mg tablet] 10 mg PO Q6HP PRN #20 tab 10/09/18 Rx Prescriptions/Medication Reconciliation: New Vits96/Iron Fum/Folic [ MVI w/Iron Tablet] 1 each PO 1700 tablet Oxycodone HCl [OxyIR 5mg tablet] 10 mg PO Q6HP PRN #20 tab PRN Reason: Moderate Pain Ferrous Sulfate [Ferrous Sulfate 325mg Tablet] 325 mg PO PC tablet - Problem Reconciliation Problems Reviewed?: Yes
== END 2018-10-09 14:13 | disposition home or self-care (01) | DRG 797 ==
LOC: OBOUT 17:54 → OB 17:54
PROVIDERS: ADMIT Obstetrics & Gynecology; ATTEND Obstetrics & Gynecology
CPT/HCPCS: 36415; 59025; 74000; 74018; 76700; 80305; 81001; 82800; 84112; 85014; 85018; 85025; 86850; 88302; 93005; 94761; C1758; G0378; J0330; J0595; J2405; P9016; S0077

== ENCOUNTER 2020-09-30 09:19 | Emergency (ER) | payer MEDICAID, SELFPAY ==
[2020-09-30 09:20] VITALS: BP 143/83; PULSE 116; RESP 18; TEMP 36.9; O2SAT 100; BMI 20.1
--- NOTE | 2020-09-30 09:26 | XR_ITS ---
PROCEDURE INFORMATION: Exam: XR Left Foot Exam date and time: 09/30/2020 9:26 AM Age: 30 years old Clinical indication: Patient HX: Left foot pain after a fall x 6 days ago; Additional info: Injury TECHNIQUE: Imaging protocol: XR Left foot. Views: 3 or more views. COMPARISON: No relevant prior studies available. FINDINGS: Bones/joints: Degenerative changes in the tarsal bones. There is no evidence of acute fracture.There is no evidence of malalignment or dislocation. Soft tissues: Soft tissue swelling along the 5th metatarsal IMPRESSION: There is no evidence of acute fracture.There is no evidence of malalignment or dislocation.
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
[2020-09-30 09:53] VITALS: BP 117/70; PULSE 107; O2SAT 99
[2020-09-30 10:00] VITALS: BP 126/73; PULSE 106; O2SAT 100
[2020-09-30 10:30] VITALS: BP 108/73; PULSE 97; O2SAT 100
--- NOTE | 2020-09-30 11:08 | PC.NURSE ---
PT REFUSED THE POST OP SHOE A BUT WILL TAKE A SET OF CRUTCHES
[2020-09-30 11:15] VITALS: BP 115/70; PULSE 99; RESP 18; TEMP 37.2; O2SAT 100
== END 2020-09-30 11:17 | disposition home or self-care (01) ==
PROVIDERS: Emergency Provider Emergency Medicine; PCP Family Medicine
DX: S90.32XA Contusion of left foot, initial encounter (principal); S90.122A Contusion of left lesser toe(s) without damage to nail, initial encounter; W01.0XXA Fall on same level from slipping, tripping and stumbling without subsequent striking against object, initial encounter; Y92.89 Other specified places as the place of occurrence of the external cause; Z88.0 Allergy status to penicillin
CPT/HCPCS: 73630; 99283